=== PATIENT | male | born 1970 | race American Indian/Alaskan Native ===

== ENCOUNTER 2017-12-18 11:52 | Emergency (ER) | payer MEDICAID, OTHER ==
[2017-12-18 12:01] VITALS: BP 118/52
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
== END 2017-12-18 14:37 | disposition home or self-care (01) ==
LOC: ED 11:52
DX: M70.22 Olecranon bursitis, left elbow (principal); J45.909 Unspecified asthma, uncomplicated; Z91.013 Allergy to seafood; Y93.89 Activity, other specified
CPT/HCPCS: 99282